=== PATIENT | male | born 2000 | race Caucasian/White ===

== ENCOUNTER 2021-07-18 15:14 | Emergency (ER) | payer OTHER ==
[~2021-07-18] VITALS: Ht 167.6 cm; Wt 68.2 kg
[2021-07-18] MEDS ORDERED: NAPR500T6 PO (15:30)
[2021-07-18] MEDS ORDERED: MUCI600T31 PO (15:30)
[2021-07-18 18:03] VITALS: BP 138/84
== END 2021-07-18 18:04 | disposition home or self-care (01) ==
LOC: M ED 15:14
DX: J06.9 Acute upper respiratory infection, unspecified (principal); B34.8 Other viral infections of unspecified site
CPT/HCPCS: 99283; U0003

== ENCOUNTER 2023-08-11 00:57 | Emergency (ER) | payer OTHER ==
[~2023-08-11] VITALS: Ht 170.2 cm; Wt 81.9 kg
[~2023-08-11 00:57] MED LIST: MUCI600T31 PO; NAPR500T6 PO
[2023-08-11] MEDS ORDERED: TENO30TAB PO (01:03)
[2023-08-11 03:45] LABS: BASO % 0.4 % (0.0-1.0); EOS # 0.4 10^3/uL (0.0-0.5); EOS % 5.3 % (0.0-3.0); HEMATOCRIT 43.6 % (42.0-52.0); HEMOGLOBIN 15.4 g/dl (13.5-17.5); LYMPH # 3.4 10^3/uL (1.5-5.0); LYMPH % 45.2 % (24.0-44.0); MEAN CORPUSCULAR HEMOGLOBIN 31.2 pg (27.0-33.0); MEAN CORPUSCULAR HGB CONC 35.3 g/dl (32.0-36.5); MEAN CORPUSCULAR VOLUME 88.3 fl (80.0-96.0); MONO # 0.5 10^3/uL (0.0-0.8); MONO % 6.4 % (2.0-8.0); NEUTROPHILS # 3.2 10^3/uL (1.5-8.5); NEUTROPHILS % 42.4 % (36.0-66.0); PLATELET COUNT, AUTOMATED 227 10^3/uL (150-450); RED BLOOD COUNT 4.94 10^6/uL (4.30-6.10); WHITE BLOOD COUNT 7.5 10^3/uL (4.0-10.0)
[2023-08-11 04:07] LABS: LIPASE 26 U/L (12-53)
[2023-08-11 04:09] LABS: ALBUMIN 4.1 G/DL (3.2-5.2); ALKALINE PHOSPHATASE 86 U/L (46-116); ALT/SGPT 28 U/L (7.0-40); AST/SGOT 21 U/L (<34); BILIRUBIN,DIRECT 0.5 MG/DL (<0.4); BILIRUBIN,TOTAL 1.8 MG/DL (0.3-1.2); BLOOD UREA NITROGEN 9 MG/DL (9-23); CALCIUM LEVEL 8.8 MG/DL (8.5-10.1); CARBON DIOXIDE LEVEL 24 MMOL/L (20-31); CHLORIDE LEVEL 104 MMOL/L (98-107); CREATININE FOR GFR 0.83 MG/DL (0.70-1.30); GLOMERULAR FILTRATION RATE > 60.0 (>60); GLUCOSE, FASTING 97 MG/DL (60-100); POTASSIUM SERUM 4.2 MMOL/L (3.5-5.1); SODIUM LEVEL 137 MMOL/L (136-145); TOTAL PROTEIN 7.2 G/DL (5.7-8.2)
[2023-08-11 05:41] LABS: INR 1.13; PARTIAL THROMBOPLASTIN TIME 28.2 SECONDS (24.8-34.2); PROTHROMBIN TIME 14.2 SECONDS (12.5-14.5)
[2023-08-11] MEDS ORDERED: ISOVUE-370 76% 100ML VIAL As Ordered ONE (06:24)
[2023-08-11] MEDS ORDERED: CVS2.1SU PR (07:49)
[2023-08-11 08:11] VITALS: BP 120/65; TEMP 98.4; O2SAT 98
== END 2023-08-11 08:13 | disposition home or self-care (01) ==
LOC: M ED 00:57
DX: K59.00 Constipation, unspecified (principal); F17.200 Nicotine dependence, unspecified, uncomplicated
CPT/HCPCS: 36415; 71045; 74177; 80047; 80048; 80076; 83605; 83690; 85025; 85610; 85730; 87486; 87581; 87633; 87798; 93041; 99284; Q9967